=== PATIENT | male | born 1990 | race Native Hawaiian/Other Pacific Islander ===

== ENCOUNTER 2017-11-27 08:50 | Outpatient (CLI) | payer BC ==
[~2017-11-27 08:50] MED LIST: AMOX875T8 PO; EQ IBUPROFEN200 MG OR
== END 2017-11-27 21:08 | disposition home or self-care (01) ==
LOC: US 08:50
DX: R10.84 Generalized abdominal pain (principal)

== ENCOUNTER 2017-12-28 08:46 | Outpatient (CLI) | payer BC | END 2017-12-28 22:20 | disposition home or self-care (01) | LOC: NM 08:46 | DX: K30 Functional dyspepsia (principal) | CPT/HCPCS: A9537 ==

== ENCOUNTER 2018-05-15 09:27 | Outpatient (CLI) | payer BC | END 2018-05-15 23:45 | disposition home or self-care (01) | LOC: US 09:27 | DX: R10.13 Epigastric pain (principal) ==

== ENCOUNTER 2018-05-18 08:05 | Outpatient (CLI) | payer BC | END 2018-05-18 22:26 | disposition home or self-care (01) | LOC: CT 08:05 | DX: R10.13 Epigastric pain (principal); K30 Functional dyspepsia | CPT/HCPCS: Q9963 ==

== ENCOUNTER 2018-06-12 15:25 | Outpatient (CLI) | payer BC | END 2018-06-12 20:04 | disposition home or self-care (01) | LOC: LABW 15:25 | DX: R07.89 Other chest pain (principal) | CPT/HCPCS: 36415; 85379 ==

== ENCOUNTER 2019-05-23 18:14 | Outpatient (CLI) | payer BC | END 2019-05-23 23:40 | disposition home or self-care (01) | LOC: LAB 18:14 | DX: R10.84 Generalized abdominal pain (principal) | CPT/HCPCS: 82272; 83630; 87015; 87045; 87206; 87324; 87328; 87329; 87449; 87507; 87899 ==

== ENCOUNTER 2019-07-25 10:58 | Outpatient (CLI) | payer BC | END 2019-07-25 19:37 | disposition home or self-care (01) | LOC: NM 10:58 | DX: R11.0 Nausea (principal) | CPT/HCPCS: A9541 ==